=== PATIENT | male | born 1980 | race Two or more races ===

== ENCOUNTER 2016-10-26 08:13 | Inpatient (IN) | payer SELFPAY ==
[2016-10-26] MEDS ORDERED: NO HOME MEDICATION XX (08:32)
[2016-10-26 09:06] LABS: BASO % 0.2 % (0-2); HCT-HEMATOCRIT 38.1 % (36.0-53.5); HGB-HEMOGLOBIN 13.4 gm/dl (13.5-17.0); IMMATURE GRANULOCYTES ABSOLUTE 0.02 tho/cmm (0-0.03); IMMATURE GRANULOCYTES PERCENT 0.4 % (0-0.3); LYMPH % 6.8 % (20-45); LYMPH ABSOLUTE COUNT 0.3 tho/cmm (0.8-4.5); MCH (MEAN CORPUSCULAR HGB) 31.4 pg (28.0-32.0); MCHC MEAN CORPUSCULAR HGB CONC 35.2 % (32.0-36.0); MCV (MEAN CELL VOLUME) 89.2 fl (82.0-96.0); MEAN PLATELET VOLUME 12.3 cmc (9.4-12.4); MONO % 10.3 % (0-12); MONOCYTE ABSOLUTE COUNT 0.5 tho/cmm (0.0-1.2); NEUTROPHILS % 82.3 % (40-80); RED BLOOD COUNT 4.27 mil/cmm (4.40-5.70); WHITE BLOOD COUNT 4.8 tho/cmm (4.0-10.0)
[2016-10-26 09:20] LABS: ALCOHOL (ETOH) <10 mg/dl (<10); BLOOD UREA NITROGEN 10 mg/dl (6-24); CALCIUM 8.9 mg/dl (8.5-10.5); CARBON DIOXIDE-VENOUS 16 mmol/L (22-32); CHLORIDE 83 mmol/l (96-110); CREATININE 1.08 mg/dl (0.60-1.30); GLUCOSE 184 mg/dL (70-110); MAGNESIUM 1.6 mg/dl (1.8-2.6); SODIUM 127 mmol/L (135-145); eGFR VALUE FOR BLACK >90 mL/Min
[2016-10-26 09:22] LABS: ANION GAP 31 mmol/L (0-20); POTASSIUM 2.8 mmol/L (3.7-5.1)
[2016-10-26 10:26] LABS: PLATELET COUNT 52 tho/cmm (150-450)
[2016-10-26 13:06] LABS: URINE BILIRUBIN NEGATIVE (NEG); URINE BLOOD MODERATE (NEG); URINE GLUCOSE (UA) NEGATIVE (NEG); URINE KETONE LARGE (NEG); URINE LEUKOCYTE ESTERASE NEGATIVE (NEG); URINE NITRITE NEGATIVE (NEG); URINE PROTEIN MODERATE (NEG)
[2016-10-26 13:08] LABS: URINE APPEARANCE CLEAR; URINE COLOR YELLOW
[2016-10-26 13:26] LABS: PROTHROMBIN TIME 11.3 SECONDS (9.0-13.6)
[2016-10-26 13:31] LABS: URINE EPITHELIAL CELLS 0-1 /[HPF] (0-10)
[2016-10-26 13:32] LABS: URINE RBC 0-2 /[HPF] (0-5)
[2016-10-26 13:33] LABS: URINE MUCUS 1+
[2016-10-26 13:40] LABS: ALBUMIN 3.5 g/dl (3.5-5.0); ALKALINE PHOSPHATASE 88 U/L (33-138); ALT/SGPT 106 U/L (12-78); AMYLASE 230 U/L (20-90); AST/SGOT 148 U/L (10-40); BILIRUBIN,INDIRECT 1.9 mg/dL (0.0-1.0); BILIRUBIN,TOTAL 2.9 mg/dl (0.0-1.5); PHOSPHOROUS 1.3 mg/dl (2.5-4.9)
[2016-10-26 13:42] LABS: LIPASE 3893 U/L (73-393)
[2016-10-26 13:44] LABS: TSH-THYROID STIMULATING HORM. 2.42 uIU/ml (0.40-3.80)
[2016-10-26 14:38] LABS: ANION GAP 17 mmol/L (0-20); BLOOD UREA NITROGEN 7 mg/dl (6-24); CALCIUM 8.5 mg/dl (8.5-10.5); CARBON DIOXIDE-VENOUS 23 mmol/L (22-32); CHLORIDE 91 mmol/l (96-110); CREATININE 0.87 mg/dl (0.60-1.30); GLUCOSE 143 mg/dL (70-110); POTASSIUM 3.3 mmol/L (3.7-5.1); SODIUM 128 mmol/L (135-145); eGFR VALUE FOR BLACK >90 mL/Min
[2016-10-27 05:23] LABS: BASO % 0.5 % (0-2); EOS % 0.8 % (0-7); HCT-HEMATOCRIT 34.4 % (36.0-53.5); HGB-HEMOGLOBIN 11.9 gm/dl (13.5-17.0); IMMATURE GRANULOCYTES ABSOLUTE 0.01 tho/cmm (0-0.03); IMMATURE GRANULOCYTES PERCENT 0.3 % (0-0.3); LYMPH % 23.2 % (20-45); LYMPH ABSOLUTE COUNT 0.9 tho/cmm (0.8-4.5); MCH (MEAN CORPUSCULAR HGB) 31.2 pg (28.0-32.0); MCHC MEAN CORPUSCULAR HGB CONC 34.6 % (32.0-36.0); MCV (MEAN CELL VOLUME) 90.3 fl (82.0-96.0); MONO % 9.1 % (0-12); MONOCYTE ABSOLUTE COUNT 0.3 tho/cmm (0.0-1.2); NEUTROPHIL ABSOLUTE COUNT 2.5 tho/cmm (1.6-8.0); NEUTROPHIL-AUTOMATED 2.5 tho/cmm (1.6-8.0); NEUTROPHILS % 66.1 % (40-80); RED BLOOD COUNT 3.81 mil/cmm (4.40-5.70); RED CELL DISTRIBUTION WIDTH 14.1 % (12.4-16.4); WHITE BLOOD COUNT 3.8 tho/cmm (4.0-10.0)
[2016-10-27 05:34] LABS: ALBUMIN 3.2 g/dl (3.5-5.0); ALKALINE PHOSPHATASE 81 U/L (33-138); ALT/SGPT 117 U/L (12-78); BILIRUBIN,TOTAL 2.3 mg/dl (0.0-1.5); BLOOD UREA NITROGEN 3 mg/dl (6-24); CALCIUM 8.2 mg/dl (8.5-10.5); CARBON DIOXIDE-VENOUS 27 mmol/L (22-32); CHLORIDE 97 mmol/l (96-110); CREATININE 0.68 mg/dl (0.60-1.30); GLUCOSE 99 mg/dL (70-110); MAGNESIUM 1.9 mg/dl (1.8-2.6); SODIUM 135 mmol/L (135-145); eGFR VALUE FOR BLACK >90 mL/Min
[2016-10-27 05:40] LABS: ANION GAP 14 mmol/L (0-20); AST/SGOT 237 U/L (10-40)
[2016-10-27 05:45] LABS: PLATELET COUNT 46 tho/cmm (150-450); POTASSIUM 2.7 mmol/L (3.7-5.1)
[2016-10-28 05:03] LABS: ALB/GLOB RATIO 0.9 (0.8-2.0); ALBUMIN 3.2 g/dl (3.5-5.0); ALKALINE PHOSPHATASE 97 U/L (33-138); ALT/SGPT 165 U/L (12-78); ANION GAP 13 mmol/L (0-20); AST/SGOT 276 U/L (10-40); BILIRUBIN,TOTAL 1.6 mg/dl (0.0-1.5); BLOOD UREA NITROGEN 5 mg/dl (6-24); CALCIUM 8.4 mg/dl (8.5-10.5); CARBON DIOXIDE-VENOUS 29 mmol/L (22-32); CHLORIDE 99 mmol/l (96-110); CREATININE 0.69 mg/dl (0.60-1.30); GLUCOSE 100 mg/dL (70-110); MAGNESIUM 1.8 mg/dl (1.8-2.6); POTASSIUM 3.2 mmol/L (3.7-5.1); SODIUM 138 mmol/L (135-145); eGFR VALUE FOR BLACK >90 mL/Min
[2016-10-28 05:25] LABS: PROTHROMBIN TIME 11.6 SECONDS (9.0-13.6)
[2016-10-28 05:26] LABS: BASO % 1.3 % (0-2); EOSINOPHIL ABSOLUTE COUNT 0.1 tho/cmm (0.0-0.7); HCT-HEMATOCRIT 34.9 % (36.0-53.5); HGB-HEMOGLOBIN 11.8 gm/dl (13.5-17.0); IMMATURE GRANULOCYTES ABSOLUTE 0.01 tho/cmm (0-0.03); IMMATURE GRANULOCYTES PERCENT 0.3 % (0-0.3); LYMPH % 20.8 % (20-45); LYMPH ABSOLUTE COUNT 0.6 tho/cmm (0.8-4.5); MCH (MEAN CORPUSCULAR HGB) 31.4 pg (28.0-32.0); MCHC MEAN CORPUSCULAR HGB CONC 33.8 % (32.0-36.0); MCV (MEAN CELL VOLUME) 92.8 fl (82.0-96.0); MEAN PLATELET VOLUME 12.7 cmc (9.4-12.4); MONO % 8.3 % (0-12); MONOCYTE ABSOLUTE COUNT 0.3 tho/cmm (0.0-1.2); NEUTROPHILS % 67.3 % (40-80); PLATELET COUNT 65 tho/cmm (150-450); RED BLOOD COUNT 3.76 mil/cmm (4.40-5.70); RED CELL DISTRIBUTION WIDTH 14.3 % (12.4-16.4)
[2016-10-28 05:32] LABS: PARTIAL THROMBOPLASTIN TIME 65 SECONDS (22-36)
[2016-10-29 05:35] LABS: ANION GAP 12 mmol/L (0-20); BLOOD UREA NITROGEN 5 mg/dl (6-24); CALCIUM 8.9 mg/dl (8.5-10.5); CARBON DIOXIDE-VENOUS 29 mmol/L (22-32); CHLORIDE 101 mmol/l (96-110); CREATININE 0.65 mg/dl (0.60-1.30); GLUCOSE 115 mg/dL (70-110); POTASSIUM 3.9 mmol/L (3.7-5.1); SODIUM 138 mmol/L (135-145); eGFR VALUE FOR BLACK >90 mL/Min
[2016-10-29] MEDS ORDERED: CARDIZEM30 M1 PO (12:37)
[2016-10-29] MEDS ORDERED: METOPROLOL TART25 M1 PO (12:38)
[2016-10-29] MEDS ORDERED: CHLORDIAZEPOXID25 M1 PO (12:39)
[2016-10-29] MEDS ORDERED: XARELTO20 M1 PO (13:49)
== END 2016-10-29 14:39 | DRG 897 ==
LOC: EDMED 08:13 → EMR2 12:55 → CCU 16:30
PROVIDERS: Emergency Medicine; Physician Assistant Medical; ADMIT Family Medicine
DX: F10.231 Alcohol dependence with withdrawal delirium (principal); R56.9 Unspecified convulsions; D69.59 Other secondary thrombocytopenia; I48.91 Unspecified atrial fibrillation; E83.42 Hypomagnesemia; E87.1 Hypo-osmolality and hyponatremia; E87.6 Hypokalemia; K70.0 Alcoholic fatty liver
CPT/HCPCS: C8929; G0009; G0480; J1644; J1650; J2060; J2405; J3475; J3480; J7030; J7050